=== PATIENT | female | born 1975 | race Caucasian/White ===

== ENCOUNTER 2017-11-07 16:34 | Emergency (ER) | payer MEDICARE ==
[2017-11-07] MEDS ORDERED: Ketorolac Tromethamine 60 MG/2 ML VIAL ONE (17:26)
--- NOTE | 2017-11-07 17:31 | RAD ---
CHEST TWO VIEWS: 11/07/17 Comparison is made with the 08/21/[address] [facility]. Overall, the differences between the films are minimal. The heart is normal in size. There is no loba r consolidation or effusion. One might argue for some slight prominence to the interstitial markings, though some of this is due to overlying breast tissue. It really does not appear substantially diffe rent than the prior study. Bony structures showed no acute findings. IMPRESSION: No acute thoracic finding. POS: HOME
[2017-11-07] MEDS ORDERED: Benzonatate 100 MG CAP ONE (17:34)
[2017-11-07] MEDS ORDERED: Lidocaine Viscous Sol 2% 15 ml UD Cup ONE (17:36)
[2017-11-07 17:41] LABS: Band 2 % (5-11); Hemoglobin 11.6 g/dL (12.0-16.0); Lymphocytes 15 % (21-51); MDiff Complete? YES; Mean Corpuscular HGB CONC 33.2 g/dL (32.0-36.0); Mean Corpuscular Volume 87.6 fl (81.0-99.0); Mean Platelet Volume 6.5 fL (7.4-10.4); Monocytes 8 % (0-10); Neutrophil 75 % (42-75); Platelet Count 453 thou/uL (130-400); RBC Distribution Width 12.2 % (11.5-14.5); Red Blood Cell (RBC) Count 3.98 mill/uL (4.20-5.40); White Blood Cell (WBC) Count 14.5 thou/uL (4.8-10.8)
[2017-11-07 17:45] LABS: ALT (SGPT) 17 U/L (8-55); AST (SGOT) 20 U/L (5-34); Albumin 3.9 g/dL (3.5-5.0); Alkaline Phosphatase 99 U/L (40-150); Anion Gap 17 mmol/L (10-20); BUN (Urea Nitrogen) 5 mg/dL (7.0-18.7); Bilirubin, Total 0.6 mg/dL (0.2-1.2); Calc. Creatinine Clearance 0 mL/min (70-130); Calcium 9.3 mg/dL (7.8-10.44); Carbon Dioxide 20 mmol/L (22-29); Chloride 102 mmol/L (98-107); Estimated GFR-MDRD Greater than 90; Globulin 3.8 g/dL (2.4-3.5); Glucose 114 mg/dL (70-105); Potassium 3.5 mmol/L (3.5-5.1); Protein, Total 7.7 g/dL (6.0-8.3); Sodium 135 mmol/L (136-145)
== END 2017-11-07 18:18 | disposition home or self-care (01) ==
LOC: BURERS 16:34
DX: J18.9 Pneumonia, unspecified organism (principal); Z87.891 Personal history of nicotine dependence
CPT/HCPCS: 71046; 80053; 85025; 87040; 96372; J1885

== ENCOUNTER 2018-02-03 21:00 | Emergency (ER) | payer MEDICARE ==
[~2018-02-03 21:00] MED LIST: Iopamidol 370 76% 100 ML VIAL ONE
[2018-02-03] MEDS ORDERED: Fentanyl 100 MCG/2 ML VIAL ONE (21:36)
[2018-02-03] MEDS ORDERED: Famotidine In NaCl 20 mg/50 ml Premix Bag ONE (21:36)
[2018-02-03] MEDS ORDERED: Ondansetron HCl/PF 4 MG/2 ML Vial ONE (21:46)
[2018-02-03 21:59] LABS: ALT (SGPT) 10 U/L (8-55); AST (SGOT) 17 U/L (5-34); Albumin 3.6 g/dL (3.5-5.0); Alkaline Phosphatase 80 U/L (40-150); Anion Gap 13 mmol/L (10-20); BUN (Urea Nitrogen) Less than 4 mg/dL (7.0-18.7); Bilirubin, Total Less than 0.2 mg/dL (0.2-1.2); Calc. Creatinine Clearance 0 mL/min (70-130); Calcium 8.6 mg/dL (7.8-10.44); Carbon Dioxide 23 mmol/L (22-29); Chloride 103 mmol/L (98-107); Estimated GFR-MDRD Greater than 90; Glucose 99 mg/dL (70-105); Lipase 17 U/L (8-78); Protein, Total 6.6 g/dL (6.0-8.3); Sodium 136 mmol/L (136-145)
[2018-02-03 22:05] LABS: Band 17 % (5-11); Eosinophils 2 % (0-10); Hemoglobin 12.9 g/dL (12.0-16.0); Lymphocytes 19 % (21-51); MDiff Complete? YES; Mean Corpuscular HGB CONC 35.4 g/dL (32.0-36.0); Mean Corpuscular Hemoglobin 28.7 pg (27.0-31.0); Mean Platelet Volume 6.6 fL (7.4-10.4); Monocytes 11 % (0-10); Neutrophil 51 % (42-75); PLT Morphology Comment Appears Adequate; Platelet Count 240 thou/uL (130-400); RBC Distribution Width 13.7 % (11.5-14.5); RBC Morphology Normal; Red Blood Cell (RBC) Count 4.48 mill/uL (4.20-5.40); White Blood Cell (WBC) Count 6.8 thou/uL (4.8-10.8)
[2018-02-03 22:07] LABS: Potassium 2.9 mmol/L (3.5-5.1)
[2018-02-03] MEDS ORDERED: Potassium Chloride 20 MEQ TAB ONE (22:24)
[2018-02-03 22:28] LABS: Clarity Slightly Cloudy (Clear); Leukocyte Negative (Negative); Nitrite Negative (Negative); Protein, Urine (Dipstick) 30 mg/dL (Neg-Trace); pH, Urine 6.5 (5.0-9.0)
[2018-02-03 22:29] LABS: Bilirubin Small (Negative); Blood, Urine Trace (Negative); Glucose, Urine (Dipstick) Negative (Negative); Urobilinogen 0.2 mg/dL (0.2-1.0)
[2018-02-03] MEDS ORDERED: D5 1/2 NS w/20 mEq KCL 1,000 ML IV SCH (22:30)
[2018-02-03 22:31] LABS: Bacteria/HPF 1+ HPF (None Seen); Squamous Epithelial 0-3 HPF (0-3); WBC/HPF 0-3 HPF (0-3)
[2018-02-03] MEDS ORDERED: Dicyclomine 20 MG TAB ONE (22:52)
[2018-02-03] MEDS ORDERED: Ciprofloxacin 500 MG TAB ONE (22:52)
[2018-02-04] MEDS ORDERED: Fentanyl 100 MCG/2 ML VIAL ONE (02:42)
--- NOTE | 2018-02-04 09:09 | CT ---
PRELIMINARY REPORT/[facility]/EMERGENTY AFTER-HOURS PROCEDURE CT Abdomen and Pelvis With Intravenous Contrast CLINICAL HISTORY: 42 years old, female; Signs and symptoms; Other: Cramping & diarrhea TECHNIQUE: Axial computed tomography images of the abdomen and pelvis with intravenous contrast. All CT scans at this facility use at least one of these dose optimization techniques: automated exposure control; mA and/or kV adjustment per patient size (includes targeted exams where dose is matched to clinical indication); or iterative reconstruction. CONTRAST: 100 mL of ISOVUE 370 administered intravenously. COMPARISON: No relevant prior studies available. FINDINGS: Lung bases: Unremarkable. No mass. No consolidation. ABDOMEN: Liver: Unremarkable. No mass. Gallbladder and bile ducts: The patient has had a cholecystectomy. No ductal dilation. Pancreas: Unremarkable. No mass. No ductal dilation. Spleen: Unremarkable. No splenomegaly. Adrenals: Unremarkable. No mass. Kidneys and ureters: There is a cyst in the right kidney. No hydronephrosis. Stomach and bowel: Diffuse wall thickening and inflammation throughout the colon and rectum consisten t with colitis. C. difficile colitis should be considered in the appropriate clinical setting. No obs truction. PELVIS: Appendix: The appendix is normal. Bladder: Unremarkable. No mass. Reproductive: Probable small fibroids in the uterus. There is an 18.9 mm involuting cyst on the left ovary. ABDOMEN and PELVIS: Intraperitoneal space: Unremarkable. No free air. No significant fluid collection. Bones/joints: No acute fracture. No dislocation. Soft tissues: Unremarkable. Vasculature: Unremarkable. No abdominal aortic aneurysm. Lymph nodes: Unremarkable. No enlarged lymph nodes. IMPRESSION: Diffuse colitis. Clostridium difficile should be considered in the appropriate clinical setting. Status post cholecystectomy. Right renal cyst. Fibroid uterus. Involuting left ovarian cyst. Thank you for allowing us to participate in the care of your patient. Dictated and Authenticated by: David Valera MD 02/04/2018 3:12 AM Central Time ([place] & [place]) FINAL REPORT CT ABDOMEN AND PELVIS WITH IV CONTRAST: Date: 02/04/18 FINDINGS/IMPRESSION: I agree with the preliminary report given by Neeta. POS: [facility]
== END 2018-02-04 03:30 | disposition home or self-care (01) ==
LOC: BURERS 21:00
DX: E87.6 Hypokalemia (principal); R19.7 Diarrhea, unspecified; Z87.891 Personal history of nicotine dependence
CPT/HCPCS: 74177; 80053; 81003; 81015; 82274; 83690; 85025; 87045; 87046; 87081; 87449; 87899; 96365; 96366; 96367; 96375; 96376; A4216; J2405; J3010